=== PATIENT | female | born 1990 | race Caucasian/White ===

== ENCOUNTER 2017-06-02 19:14 | Emergency (ER) | payer SELFPAY ==
[~2017-06-02] VITALS: Ht 152.4 cm; Wt 48.0 kg
[2017-06-02 19:33] LABS: ADD MIUA? YES; BILIRUBIN NEGATIVE; BLOOD NEGATIVE; COLOR YELLOW ((YELLOW)); GLUCOSE (STRIP) NEGATIVE; KETONES NEGATIVE; LEUKOCYTES NEGATIVE; NITRITE NEGATIVE; PROTEIN (STRIP) NEGATIVE; UROBILINOGEN 0.2 MG/DL (0.2-1.0)
[2017-06-02 19:38] LABS: BACTERIA NONE SEEN /HPF; EPITHELIAL CELLS RARE /HPF; MUCUS TRACE /LPF; RED BLOOD CELLS 0-5 /HPF (0-5); UCUL ADDED? NO; WHITE BLOOD CELLS 0-5 /HPF (0-5)
[2017-06-02 21:38] LABS: HEMATOCRIT 36.5 % (36.0-46.0); MCH 30.3 PG (29.0-34.0); MCV 89.2 FL (83-99); MEAN PLAT.VOLUME 10.4 uM^3 (9.5-12.4); PLATELET COUNT 256 K/uL (156-360); RBC DIS.WIDTH-CV 12.3 % (11.8-14.6); RBC DIS.WIDTH-SD 40.4 % (39-53); RED BLOOD COUNT 4.09 M/uL (3.80-5.20)
[2017-06-02 21:58] LABS: CHLORIDE 102 mEq/L (99-109); POTASSIUM 3.5 mEq/L (3.7-5.4); SODIUM 138 mEq/L (136-147)
[2017-06-02 22:00] LABS: GLUCOSE 99 mg/dL (70-99)
[2017-06-02 22:01] LABS: ANION GAP 12 MEQ/L (2-14)
[2017-06-02 22:04] LABS: GFR ESTIMATE (CALCULATED) > 59 mL/min/
[2017-06-02 22:05] LABS: UREA NITROGEN (BUN) 11 mg/dL (9-23)
[2017-06-02 22:14] LABS: QUANTITATIVE HCG < 4.0 MIU/ML
[2017-06-02] MEDS ORDERED: BACTRIM,SEPT1 TABLET PO (22:23)
[2017-06-02] MEDS ORDERED: PYRIDIUM100 MG PO (22:23)
[2017-06-02 22:45] VITALS: BP 125/74
== END 2017-06-02 22:45 | disposition home or self-care (01) ==
LOC: EME 19:14 → RME 19:14
PROVIDERS: Nurse Practitioner Family
DX: N30.90 Cystitis, unspecified without hematuria (principal); R10.30 Lower abdominal pain, unspecified
CPT/HCPCS: 74000; 80048; 81003; 84702; 85027; 87086; 99281; 99284